=== PATIENT | female | born 1970 | race Caucasian/White ===

== ENCOUNTER 2021-11-26 08:52 | Outpatient (RCR) | payer BC, SELFPAY | END 2022-01-17 14:15 | disposition home or self-care (01) | PROVIDERS: PCP Family Medicine; Visit Provider Family Medicine | DX: M54.17 Radiculopathy, lumbosacral region (principal); Z51.89 Encounter for other specified aftercare | CPT/HCPCS: 97110; 97162 ==

== ENCOUNTER 2021-12-14 07:39 | Outpatient (CLI) | payer BC, SELFPAY | END 2021-12-14 07:40 | disposition home or self-care (01) | LOC: INJ CL 07:41 | PROVIDERS: PCP Family Medicine; Visit Provider Family Medicine | DX: M54.16 Radiculopathy, lumbar region (principal) | CPT/HCPCS: 64483; J1100; Q9966 ==

== ENCOUNTER 2022-04-19 09:13 | Outpatient (CLI) | payer BC, SELFPAY ==
--- NOTE | 2022-04-19 09:15 | CRLHL7_ITS ---
For Patients: As a result of the Century Cures Act, medical imaging exams and procedure reports are released immediately into your electronic medical record. You may view this report before your referring provider. If you have questions, please contact your health care provider. BILATERAL SCREENING MAMMOGRAM WITH COMPUTER-AIDED DETECTION AND TOMOSYNTHESIS TECHNIQUE: CC and MLO views were obtained. These mammographic images have been obtained using full-field digital technique. These mammographic images were interpreted with the benefit of computer-aided detection. Breast Tomosynthesis was used in this interpretation. COMPARISON FILM: 03/12/21, 04/12/19, 05/28/17. FINDINGS: There are scattered areas of fibroglandular density IMPRESSION: There is no radiographic evidence for malignancy. ASSESSMENT: BI-RADS Category 1: Negative RECOMMENDATION: Routine screening mammogram in 1 year. A lay language report of this examination will be provided to the patient. Bowen Mendoza M.D. Diagnostic Radiologist [email or web address] DALE/Dictated by: Bowen Mendoza MD @ 04/19/2022 11:28:00 AM (Electronically Signed)
== END 2022-04-19 09:14 | disposition home or self-care (01) ==
PROVIDERS: PCP Family Medicine; Visit Provider Family Medicine
DX: Z12.31 Encounter for screening mammogram for malignant neoplasm of breast (principal)
CPT/HCPCS: 77063; 77067

== ENCOUNTER 2023-05-20 15:13 | Outpatient (CLI) | payer BC, SELFPAY ==
--- NOTE | 2023-05-20 15:20 | MM_ITS ---
Final Report Patient: DALILA FRAZIER Facility:?[facility] Patient ID:?[id number] :?1970 Study:?XRay Breast Bilateral 3D W/CAD-05/20/2023 3:36:14 PM Ordering Physician:Sydney Valencia Final Report: BILATERAL SCREENING MAMMOGRAM WITH COMPUTER-AIDED DETECTION AND TOMOSYNTHESIS TECHNIQUE: CC and MLO views were obtained. These mammographic images have been obtained using full-field digital technique. These mammographic images were interpreted with the benefit of computer-aided detection. Breast Tomosynthesis was used in this interpretation. COMPARISON FILM: 04/19/22, 03/12/21, 04/12/19. FINDINGS: There are scattered areas of fibroglandular density. IMPRESSION: There is no radiographic evidence for malignancy. ASSESSMENT: BI-RADS Category 1: Negative RECOMMENDATION: Routine screening mammogram in 1 year. A lay language report of this examination will be provided to the patient. Bowen Mendoza M.D. Diagnostic Radiologist [email or web address] DSM/sp R& Transcribed: 4:27 p.m. SP/Dictated by: Bowen Mendoza MD @ 05/21/2023 11:20:00 AM (Electronic Signature)
== END 2023-05-20 15:14 | disposition home or self-care (01) ==
LOC: MAMMO 15:13
PROVIDERS: PCP Family Medicine; Visit Provider Family Medicine
DX: Z12.31 Encounter for screening mammogram for malignant neoplasm of breast (principal)
CPT/HCPCS: 77063; 77067

== ENCOUNTER 2023-05-23 15:22 | Outpatient (CLI) | payer BC, SELFPAY ==
--- NOTE | 2023-05-23 15:00 | US_ITS ---
Patient: DALILA Navarrete KARIN Facility:?[facility] Patient ID:?[id number] Site Patient ID:?[id number]. Site :?[id number] Study:?US-Pelvis -05/23/2023 4:16:04 PM Ordering Physician:Eric June Final Report: INDICATION: Right pelvic pain TECHNIQUE: Transabdominal and transvaginal scanning was performed. Transvaginal scanning was performed to optimally evaluate the endometrium and adnexa. Ovarian blood flow was evaluated with color-flow and pulsed Doppler. COMPARISON: None. FINDINGS: The uterus is normal in size, measuring 9.7 x 5.1 x 4.9 cm. In intramural 4.0 x 3.6 x 3.4 cm posterior uterine body fibroid is demonstrated. The endometrial stripe is normal in thickness at 6 mm. The left ovary is not visualized. The right ovary measures 3.1 x 2.3 x 1.8 cm. Right ovarian blood flow is demonstrated with color-flow and pulsed Doppler. No adnexal mass is evident. No free fluid is demonstrated. IMPRESSION: 1. Normal right ovary and adnexa. 2. Intramural 4.0 cm uterine fibroid. Dictated by Haresh Arreola MD @ 05/24/2023 6:37:53 AM Signed by:?Haresh Arreola MD @05/24/2023 6:37:53 AM (Electronic Signature)
== END 2023-05-23 15:23 | disposition home or self-care (01) ==
PROVIDERS: PCP Family Medicine; Visit Provider Physician Assistant
DX: R10.2 Pelvic and perineal pain (principal); D25.1 Intramural leiomyoma of uterus
CPT/HCPCS: 76830; 76856; 93976

== ENCOUNTER 2024-05-06 08:04 | Outpatient (CLI) | payer BC, SELFPAY ==
--- NOTE | 2024-05-06 08:36 | W.ANESCHARGE ---
Anesthesia Charges Start Date/Time Anesthesia Start Date: 05/06/24 Anesthesia Start Time: 08:45 Stop Date/Time Anesthesia Stop Date: 05/06/24
--- NOTE | 2024-05-06 09:09 | W.ANESCHARGE ---
Anesthesia Charges Start Date/Time Anesthesia Start Date: 05/06/24 Anesthesia Start Time: 08:45 Stop Date/Time Anesthesia Stop Date: 05/06/24 Anesthesia Stop Time: 09:05 Coding CPT Codes CPT Codes: DARYN LWR INTST SCR COLSC - 97623 ([id number]) P2 - PATIENT W/MILD SYST DISEASE, QK - MANUFACTURING DIRECTOR 2-4 CNCRNT ANES PROC, QX - COMMERCIAL COLLECTIONS DRIVER SVC W/ MD MED DIRECTION
--- NOTE | 2024-05-06 09:13 | W.ANESCHARGE ---
Anesthesia Charges Start Date/Time Anesthesia Start Date: 05/06/24 Anesthesia Start Time: 08:45 Stop Date/Time Anesthesia Stop Date: 05/06/24 Anesthesia Stop Time: 09:05 Coding CPT Codes CPT Codes: DARYN LWR INTST SCR COLSC - 49024 ([id number]) P2 - PATIENT W/MILD SYST DISEASE, QK - INTERNATIONAL MARKETING EXECUTIVE 2-4 CNCRNT ANES PROC, QX - ADMITTED ATTORNEYS SVC W/ MD MED DIRECTION
== END 2024-05-06 08:05 | disposition home or self-care (01) ==
LOC: OP CLINIC 08:05
PROVIDERS: PCP Family Medicine; Visit Provider Internal Medicine
DX: Z12.11 Encounter for screening for malignant neoplasm of colon (principal); K57.30 Diverticulosis of large intestine without perforation or abscess without bleeding; Z86.0100 Personal history of colon polyps, unspecified
CPT/HCPCS: 00812; 45378; J2704

== ENCOUNTER 2024-05-21 08:58 | Outpatient (CLI) | payer BC, SELFPAY | END 2024-05-21 08:59 | disposition home or self-care (01) | PROVIDERS: PCP Family Medicine; Visit Provider Physician Assistant | DX: N91.2 Amenorrhea, unspecified (principal); Z13.6 Encounter for screening for cardiovascular disorders; Z13.1 Encounter for screening for diabetes mellitus; Z13.29 Encounter for screening for other suspected endocrine disorder | CPT/HCPCS: 80061; 82947; 83001; 84443 ==